=== PATIENT | male | born 1975 | race Caucasian/White ===

== ENCOUNTER 2022-01-22 16:52 | Emergency (ER) | payer BC ==
[~2022-01-22] VITALS: Ht 172.7 cm; Wt 91.2 kg
[2022-01-22] MEDS ORDERED: METRONIDAZOLE500 MG PO (21:45)
[2022-01-22] MEDS ORDERED: CIPRO500 MG PO (21:45)
== END 2022-01-22 22:06 | disposition home or self-care (01) ==
LOC: ED 16:52
DX: R10.32 Left lower quadrant pain (principal)
CPT/HCPCS: 36415; 74177; 80053; 81001; 83690; 83735; 85025; 99284-25; J1885; Q9967